=== PATIENT | female | born 1995 | race American Indian/Alaskan Native ===

== ENCOUNTER 2017-02-06 16:15 | Emergency (ER) | payer MEDICAID ==
[2017-02-06 18:17] LABS: Basophils % (Auto) 0.7 % (0.0-1.8); Eosinophils % (Auto) 2.6 % (0.0-4.3); Hematocrit 39.8 % (30.3-42.9); Hemoglobin 12.6 gm/dl (10.1-14.3); Mean Corpuscular HGB Conc 32 % (30-34); Mean Corpuscular Volume 80 fl (79-97); Platelet Count 264 K/mm3 (140-440); Red Blood Count 4.99 M/mm3 (3.65-5.03); White Blood Count 7.1 K/mm3 (4.5-11.0)
[2017-02-06 18:21] LABS: Mean Corpuscular Hemoglobin 25 pg (28-32)
[2017-02-06 18:52] LABS: Anion Gap 19 mmol/L; Blood Urea Nitrogen 8 mg/dL (7-17); Calcium 9.1 mg/dL (8.4-10.2); Carbon Dioxide 24 mmol/L (22-30); Chloride 103.2 mmol/L (98-107); Glucose 111 mg/dL (65-100); Potassium 3.9 mmol/L (3.6-5.0); Sodium 142 mmol/L (137-145)
[2017-02-06 20:07] LABS: Bilirubin,Urine NEG (Negative); Blood,Urine NEG (Negative); Ketones,Urine NEG (Negative); Leukocyte Esterase,Urine MOD (Negative); Nitrite,Urine NEG (Negative); Protein,Urine <15 mg/dL mg/dL (Negative); Urobilinogen,Urine < 2.0 mg/dL (<2.0)
[2017-02-06 20:20] LABS: RBC,Urine < 1.0 /HPF (0.0-6.0); Trichomonas,Urine Present /HPF
--- NOTE | 2017-02-06 21:06 | Emergency Department Report ---
HPI - General Chief Complaint: Urogenital-Female Time Seen by Provider: 02/06/17 20:18 - HPI HPI: Patient is a 21-year-old female presents to the ED complaining of vaginal discharge with foul odor times two weeks. Patient describes discharge as white , creamy yellowish consistency. She denies any vaginal lesions or pain. She states last menstrual period was last month. Patient reports recent unprotected sex with her boyfriend. Patient states she got a call from her boyfriend a couple of days ago that she was tested to have an STD chlamydia. She is here to be tested and treated. Patient denies any fever, chills, nausea or vomiting vaginal itching, dysuria, vaginal bleeding, dyspareunia. ED Past Medical Hx - Past Medical History Previous Medical History?: No - Surgical History Past Surgical History?: No - Social History Smoking Status: Current Every Day Smoker Substance Use Type: Alcohol - Medications Home Medications: Home Medications Medication Instructions Recorded Confirmed Last Taken Type HYDROcodone/APAP 5-325 [[place] 1 each PO Q6HR PRN #20 tablet 07/06/15 Unknown Rx 5/325] metroNIDAZOLE [Flagyl] 500 mg PO Q12HR #20 tab 07/06/15 Unknown Rx Ibuprofen [Motrin 600 MG tab] 600 mg PO Q8H PRN #30 tablet 02/06/17 Unknown Rx Sulfamethoxazole/Trimethoprim 1 each PO BID #8 tablet 02/06/17 Unknown Rx [Bactrim DS TAB] ED Review of Systems ROS: Stated complaint: VAGINAL CONCERNS Other details as noted in HPI Constitutional: denies: chills, fever Eyes: denies: eye pain, eye discharge, vision change ENT: denies: ear pain, throat pain Respiratory: denies: cough, shortness of breath, wheezing Cardiovascular: denies: chest pain, palpitations Endocrine: no symptoms reported Gastrointestinal: denies: abdominal pain, nausea, diarrhea Genitourinary: denies: urgency, dysuria, discharge Musculoskeletal: denies: back pain, joint swelling, arthralgia Skin: denies: rash, lesions Neurological: denies: headache, weakness, paresthesias Psychiatric: denies: anxiety, depression Hematological/Lymphatic: denies: easy bleeding, easy bruising Physical Exam - Physical Exam Vital Signs: Vital Signs 02/06/17 17:58 Temperature 98.8 F Pulse Rate 74 Respiratory 20 Rate Blood Pressure 113/76 O2 Sat by Pulse 100 Oximetry Physical Exam: GENERAL: Alert and oriented x3, no apparent distress, Normal Gait, atraumatic. HEAD: Head is normocephalic and a-traumatic. LUNGS: Symetrical with respiration, No wheezing, no rales or crackles, CTAB. HEART: S1, S2 present, regular rate and rhythm without murmur, no rubs, no gallops. Non tender to palpation ABDOMEN: No organomegaly was noted,Positive bowel sounds, soft, and non- distended. . Nontender to palpation on all Quadrants, NO CVA tenderness. GENITOURINARY: External genitalia without erythema, exudate, mild discharge. Vaginal vault is with greenish malodorous discharge. Cervix is of normal color without lesion. Cervical os is closed. No bleeding noted. Uterus is noted to be of normal size and nontender. No cervical motion tenderness. No masses are palpated. The adnexa are without masses or tenderness. SKIN: Warm and dry, No lesions, No ulceration or induration present. ED Course Vital Signs 02/06/17 17:58 Temperature 98.8 F Pulse Rate 74 Respiratory 20 Rate Blood Pressure 113/76 O2 Sat by Pulse 100 Oximetry ED Medical Decision Making - Lab Data Result diagrams: 02/06/17 18:07 02/06/17 18:07 - Medical Decision Making 21-year-old male presents with STD exposure. ED course: Unalysis and gonorrhea and Chlamydia cultures obtained. Urinalysis positive for leukorrhea, trichomoniasis. Urine test negative Wet prep ordered-positive for trichomoniasis, clue cells Patient received 250 mg of Rocephin, azithromycin 1 g, Flagyl 2 g. Discussed with patient possible STD due to exposure. Discussed with patient findings and treatment Discussed prophylaxis treatment patient is to abstain from sex 7-10 days as treatment. Discussed patient partner knowledge and treatment. Discussed the follow-up with the health department for further STD testing. Patient's alert and oriented times 3. Vital signs are normal patient is in no acute discharge. Patient will be discharged home with instructions. Critical care attestation.: If time is entered above; I have spent that time in minutes in the direct care of this critically ill patient, excluding procedure time. ED Disposition Clinical Impression: STD (sexually transmitted disease), Trichomonal cervicitis, Cystitis Disposition: DC-01 TO HOME OR SELFCARE Is pt being admited?: No Does the pt Need Aspirin: No Condition: Stable Instructions: Sexually Transmitted Diseases (ED), Safe Sex (ED), Trichomoniasis (ED), Urinary Tract Infection in Women (ED), Bacterial Vaginosis (ED) Prescriptions: Ibuprofen [Motrin 600 MG tab] 600 mg PO Q8H PRN #30 tablet PRN Reason: Pain Sulfamethoxazole/Trimethoprim [Bactrim DS TAB] 1 each PO BID #8 tablet Referrals: PRIMARY CAREMD [Primary Care Provider] - 3-5 Days ROOPA OLMEDO MD [Referring] - 3-5 Days [facility] [Outside] - 3-5 Days [facility] [Outside] - 3-5 Days Forms: STI Treatment and Prevention, Work/School Release Form(ED)
[2017-02-06] MEDS ORDERED: ZITHROMAX PO ONE (21:27)
[2017-02-06] MEDS ORDERED: ROCEPHIN IM ONE (21:27)
[2017-02-06] MEDS ORDERED: XYLOCAINE 1% MPF 5 mL INFILTRATI ONE (21:28)
[2017-02-06] MEDS ORDERED: FLAGYL PO ONE (21:28)
[2017-02-06 22:40] VITALS: BP 112/77
== END 2017-02-06 22:41 | disposition home or self-care (01) ==
LOC: ED 16:15
DX: A59.09 Other urogenital trichomoniasis (principal); N30.90 Cystitis, unspecified without hematuria; A64 Unspecified sexually transmitted disease; F17.200 Nicotine dependence, unspecified, uncomplicated
CPT/HCPCS: 36415; 80048; 81001; 84703; 85025; 87210; 87591; 96372; 99284; J0696

== ENCOUNTER 2017-07-22 06:23 | Emergency (ER) | payer SELFPAY ==
[2017-07-22 16:49] LABS: HCG Qualitative,Urine Negative (Negative)
[2017-07-22 16:52] LABS: Bacteria,Urine 1+ /HPF (Negative); Bilirubin,Urine NEG (Negative); Blood,Urine NEG (Negative); Color,Urine Yellow (Yellow); Nitrite,Urine NEG (Negative); Protein,Urine <15 mg/dL mg/dL (Negative); Urobilinogen,Urine < 2.0 mg/dL (<2.0)
[2017-07-22 17:20] VITALS: BP 93/64
[2017-07-22] MEDS ORDERED: FLAGYL PO ONE (17:29)
--- NOTE | 2017-07-22 17:51 | Emergency Department Report ---
ED Female HPI - General Chief complaint: Urogenital-Female Stated complaint: STD Time Seen by Provider: 07/22/17 16:24 Source: patient, old records reviewed Mode of arrival: Ambulatory Limitations: No Limitations - History of Present Illness Initial comments: 21-year-old female with a past medical history of gonorrhea and trichomonas infection within the last year presents to the hospital with complaints of vaginal discharge 2 weeks. Patient last sexually active one month ago. She does not use condoms with her regular partner. She complains of mild intermittent 5/5 left lower quadrant pain with no aggravating or alleviating factors. Patient denies fever, or dysuria. Patient states that the discharge does have a older but it is not fishy. Previous Medical record reviewed patient had a positive gonorrhea test 06/2016 and a positive Trichomonas and bacterial vaginosis test 01/2017 - Related Data Previous Rx's Medication Instructions Recorded Last Taken Type HYDROcodone/APAP 5-325 [[place] 1 each PO Q6HR PRN #20 tablet 07/06/15 Unknown Rx 5/325] Ibuprofen [Motrin 600 MG tab] 600 mg PO Q8H PRN #30 tablet 02/06/17 Unknown Rx Sulfamethoxazole/Trimethoprim 1 each PO BID #8 tablet 07/22/17 Unknown Rx [Bactrim DS TAB] metroNIDAZOLE [Flagyl TAB] 500 mg PO Q12HR #14 tab 07/22/17 Unknown Rx Allergies Allergy/AdvReac Type Severity Reaction Status Date / Time No Known Allergies Allergy Verified 02/06/17 17:58 ED Review of Systems ROS: Stated complaint: STD Other details as noted in HPI Comment: All other systems reviewed and negative Other: Constitutional: No fevers chills Eyes: No eye pain visual changes ENT: No ear pain or throat pain Neck: Denies pain Respiratory: Denies cough wheezing shortness of breath Cardiovascular: Denies chest pain, palpitations, syncope GI: Denies nausea, vomiting, diarrhea : Denies dysuria Musculoskeletal: Denies back pain Skin: Denies rash, lesions, erythema Neurologic: Denies headache, numbness, weakness Psychiatric: Denies suicidal ideation, hallucinations ED Past Medical Hx - Past Medical History Previous Medical History?: No - Surgical History Past Surgical History?: No - Social History Smoking Status: Never Smoker Substance Use Type: None - Medications Home Medications: Home Medications Medication Instructions Recorded Confirmed Last Taken Type HYDROcodone/APAP 5-325 [[place] 1 each PO Q6HR PRN #20 tablet 07/06/15 Unknown Rx 5/325] Ibuprofen [Motrin 600 MG tab] 600 mg PO Q8H PRN #30 tablet 02/06/17 Unknown Rx Sulfamethoxazole/Trimethoprim 1 each PO BID #8 tablet 07/22/17 Unknown Rx [Bactrim DS TAB] metroNIDAZOLE [Flagyl TAB] 500 mg PO Q12HR #14 tab 07/22/17 Unknown Rx ED Physical Exam - General Limitations: No Limitations - Other Other exam information: General: No limitations, patient is alert in no acute distress Head exam: Atraumatic, normocephalic Eyes exam: Normal appearance ENT: Moist mucous membrane, normal oropharynx Neck exam: Normal inspection, full range of motion, no meningismus nontender Respiratory exam: Clear to auscultation bilateral, no wheezes, rales, crackles Cardiovascular: Normal rate and rhythm, normal heart sounds Abdomen: Soft, nondistended, mild superior pubic tenderness, with normal bowel sounds, no rebound, or guarding : White vaginal discharge, no CMT or adnexal tenderness Extremity: Full range of motion normal inspection no deformity Back: Normal Inspection, full range of motion, no tenderness Neurologic: Alert, oriented x3, cranial nerves intact, no motor or sensory deficit Psychiatric: normal affect, normal mood Skin: Warm, dry, intact ED Course Vital Signs 07/22/17 07/22/17 06:34 17:19 Temperature 98.0 F 98.9 F Pulse Rate 75 72 Respiratory 17 18 Rate Blood Pressure 116/72 Blood Pressure 93/64 [Left] O2 Sat by Pulse 100 100 Oximetry - Reevaluation(s) Reevaluation #1: 07/22/17 17:54 Patient given Flagyl in the ED ED Medical Decision Making - Medical Decision Making Patient's pain is minimal on exam. Patient declined offer for pain medication in the ED. Wet prep positive for clue cells. Patient will be treated with Flagyl for bacterial vaginosis. Gonorrhea chlamydia test pending but clinically no signs of PID on exam there for patient not empirically treated. Patient has increased WBC count leukocytes in her urine. She denies urinary symptoms. His likely a contaminate from her vaginal discharge. Will be covered with Bactrim. - Differential Diagnosis vaginitis, cervicitis, PID, ovarian cyst Critical Care Time: No Critical care attestation.: If time is entered above; I have spent that time in minutes in the direct care of this critically ill patient, excluding procedure time. ED Disposition Clinical Impression: Bacterial vaginosis, Urine leukocytes Disposition: TO HOME OR SELFCARE Is pt being admited?: No Does the pt Need Aspirin: No Condition: Stable Instructions: Bacterial Vaginosis (ED), Urinary Tract Infection in Women (ED) Additional Instructions: Take the medication as prescribed. Follow-up with the LOGISTICS ANALYST doctor provider or the doctor of his choice. Your gonorrhea and chlamydia tests are pending and take approximately 3-4 days result. You may obtain results in medical records with a photo ID. You may also obtain results through the follow-up doctor office via medical record request. Prescriptions: metroNIDAZOLE [Flagyl TAB] 500 mg PO Q12HR #14 tab Sulfamethoxazole/Trimethoprim [Bactrim DS TAB] 1 each PO BID #8 tablet Referrals: ETHEL COREY MD [Staff Physician] - 3-5 Days Forms: STI Treatment and Prevention Time of Disposition: 17:57
== END 2017-07-22 18:39 | disposition home or self-care (01) ==
LOC: ED 06:23
DX: N76.0 Acute vaginitis (principal); R82.90 Unspecified abnormal findings in urine
CPT/HCPCS: 81001; 81025; 87210; 87591; 99284

== ENCOUNTER 2018-10-18 00:54 | Emergency (ER) | payer MEDICAID ==
[2018-10-18 03:21] LABS: Bilirubin,Urine NEG (Negative); Blood,Urine NEG (Negative); Color,Urine Yellow (Yellow); Protein,Urine <15 mg/dL mg/dL (Negative); Urobilinogen,Urine < 2.0 mg/dL (<2.0)
--- NOTE | 2018-10-18 05:55 | Emergency Department Report ---
ED Female HPI - General Chief complaint: Nausea/Vomiting/Diarrhea Stated complaint: ABDOMINAL PAIN SORE BREAST DISCHARGE Time Seen by Provider: 10/18/18 04:39 Source: patient Mode of arrival: Ambulatory Limitations: No Limitations - History of Present Illness Initial comments: 22-year-old -[place] female reports to the emergency room for fatigue and decrease in appetite. Patient also reports that she has left her contraceptive implant in her arms over the time that it should be. Patient reports that the implant was placed in 2014. Patient states she thinks she may be but home test was negative. Patient admits to nausea no vomiting. She is 2 para 1 with one miscarriage. MD Complaint: vaginal discharge -: week(s) (2 for vag dc) Are you Now?: No Last Menstrual Period: 08/29/18 EDC: 06/05/19 Associated Symptoms: vaginal discharge, nausea/vomiting (nause), loss of appetite - Related Data Sexually active: Yes : 2 Para: 1 A: 1 Previous Rx's Medication Instructions Recorded Last Taken Type metroNIDAZOLE [Metronidazole] 500 mg PO Q12HR #14 tablet 10/18/18 Unknown Rx Allergies Allergy/AdvReac Type Severity Reaction Status Date / Time No Known Allergies Allergy Verified 02/06/17 17:58 ED Review of Systems ROS: Stated complaint: ABDOMINAL PAIN SORE BREAST DISCHARGE Other details as noted in HPI ED Past Medical Hx - Past Medical History Previous Medical History?: No - Surgical History Past Surgical History?: No - Social History Smoking Status: Current Every Day Smoker Substance Use Type: Alcohol, Marijuana - Medications Home Medications: Home Medications Medication Instructions Recorded Confirmed Last Taken Type metroNIDAZOLE [Metronidazole] 500 mg PO Q12HR #14 tablet 10/18/18 Unknown Rx ED Physical Exam - General Limitations: No Limitations General appearance: alert, in no apparent distress - Head Head exam: Present: atraumatic, normocephalic - Eye Eye exam: Present: EOMI - ENT ENT exam: Present: mucous membranes moist - GI/Abdominal GI/Abdominal exam: Present: soft. Absent: distended, tenderness - External exam: Present: normal external exam Speculum exam: Present: vaginal discharge Bi-manual exam: Present: normal bi-manual exam - Extremities Exam Extremities exam: Present: normal inspection, full ROM - Back Exam Back exam: Present: normal inspection - Neurological Exam Neurological exam: Present: alert, oriented X3 - Psychiatric Psychiatric exam: Present: normal affect, normal mood - Skin Skin exam: Present: warm, dry, intact, normal color. Absent: rash ED Course Vital Signs 10/18/18 10/18/18 01:02 01:11 Temperature 98.4 F 98 F Pulse Rate 91 H 98 H Respiratory 16 18 Rate Blood Pressure 120/75 120/75 O2 Sat by Pulse 100 97 Oximetry ED Medical Decision Making - Medical Decision Making Patient's been evaluated by this provider and [facility]. HCG quantitative, wet prep and chlamydia has been sent to lab. Critical care attestation.: If time is entered above; I have spent that time in minutes in the direct care of this critically ill patient, excluding procedure time. ED Disposition Clinical Impression: Bacterial vaginosis Disposition: - TO HOME OR SELFCARE Is pt being admited?: No Does the pt Need Aspirin: No Condition: Stable Instructions: Bacterial Vaginosis (ED) Additional Instructions: Please complete antibiotics as prescribed. Return to Hospital medical records in 3-5 days for your gonorrhea and chlamydia results. You will need to bring your photo ID when you come. Prescriptions: metroNIDAZOLE [Metronidazole] 500 mg PO Q12HR #14 tablet Referrals: MIGDALIA MAHER MD [Primary Care Provider] - 3-5 Days Forms: STI Treatment and Prevention
[2018-10-18 06:40] VITALS: BP 113/71
== END 2018-10-18 06:41 | disposition home or self-care (01) ==
LOC: ED 00:54
DX: N76.0 Acute vaginitis (principal); F17.200 Nicotine dependence, unspecified, uncomplicated; F12.10 Cannabis abuse, uncomplicated
CPT/HCPCS: 36415; 81001; 84702; 87210; 87591

== ENCOUNTER 2021-02-19 14:36 | Emergency (ER) | payer MEDICAID | END 2021-02-19 16:43 | disposition left against medical advice (07) | LOC: ED 14:36 | DX: J39.2 Other diseases of pharynx (principal); Z53.21 Procedure and treatment not carried out due to patient leaving prior to being seen by health care provider ==